=== PATIENT | female | born 1985 | race Hispanic/Latino ===

== ENCOUNTER 2017-05-07 20:00 | Outpatient (CLI) | payer BC | END 2017-05-07 20:01 | disposition home or self-care (01) | LOC: SLEEPLAB 20:00 | PROVIDERS: ATTEND Family Medicine | DX: G47.33 Obstructive sleep apnea (adult) (pediatric) (principal); R06.83 Snoring; R53.83 Other fatigue; K21.9 Gastro-esophageal reflux disease without esophagitis; E66.9 Obesity, unspecified | CPT/HCPCS: 95806 ==